=== PATIENT | male | born 1970 | race Caucasian/White ===

== ENCOUNTER 2023-05-10 14:39 | Inpatient (IN) ==
[2023-05-10] MEDS ORDERED: IOPAMIDOL 100 ML BOTTLE IV ONE (14:40)
[2023-05-10] MEDS ORDERED: 0.9 % SODIUM CHLORIDE 1,000 ML IV ONE (15:09)
[2023-05-10 15:26] LABS: POC Calcium, Ionized 1.12 (1.16-1.32); POC Creatinine 2.1 (0.6-1.2); POC Potassium 3.8 (3.3-5.1)
[2023-05-10 16:04] LABS: Basophils # (Auto) 0.03 K/mcL (0.00-0.30); Basophils % (Auto) 0.3 % (0.0-2.0); Eosinophils # (Auto) 0.01 K/mcL (0.00-0.70); Eosinophils % (Auto) 0.1 % (0.0-7.0); Hematocrit 31.4 % (40.1-51.0); Hemoglobin 9.7 g/dL (13.7-17.5); Lymphocytes # (Auto) 0.66 K/mcL (1.50-4.80); Lymphocytes % (Auto) 5.9 % (15.5-49.0); Mean Cell Volume 86.3 fL (80.0-100.0); Mean Corpuscular HGB Conc 30.9 g/dL (31.0-36.0); Mean Platelet Volume 9.2 fL (8.8-12.5); Monocytes # (Auto) 0.99 K/mcL (0.10-0.90); Monocytes % (Auto) 8.9 % (1.0-12.0); Neutrophils % (Auto) 81.4 % (38.0-78.0); Platelet Count 569 K/mcL (140-440); RBC 3.64 M/mcL (4.63-6.08); Red Cell Distribution Width 13.1 % (11.5-14.5); WBC 11.2 K/mcL (4.5-11.0)
[2023-05-10 16:08] LABS: INR 1.2 (0.9-1.1); Prothrombin Time 15.6 sec (11.9-14.5)
[2023-05-10 16:17] LABS: ALT/SGPT 11 U/L (<40); AST/SGOT 19 U/L (<40); Albumin 2.8 gm/dL (3.2-5.2); Alkaline Phosphatase 291 U/L (39-117); Bilirubin,Direct 0.3 mg/dL (<0.3); Bilirubin,Total 0.4 mg/dL (0.1-1.0); Globulin 4.3 gm/dL (2.2-3.7)
[2023-05-10] MEDS ORDERED: ACETAMINOPHEN 1,000 MG/100 ML BAG IV ONE (17:42)
[2023-05-10] MEDS ORDERED: ONDANSETRON 4 MG/2 ML VIAL IV ONE (17:42)
[2023-05-10] MEDS ORDERED: ONDANSETRON 4 MG/2 ML VIAL ONE ×2 (17:43→20:15)
[2023-05-10] MEDS ORDERED: VANCOMYCIN 2,000 MG in 0.9 % SODIUM CHLORIDE 500 ML IV ONE (17:44)
[2023-05-10] MEDS ORDERED: PIPERACILLIN SODIUM/TAZOBACTAM 4.5 GM in DEXTROSE 5% IN WATER 50 ML IV ONE (17:44)
[2023-05-10 18:35] LABS: Basophils # (Auto) 0.05 K/mcL (0.00-0.30); Basophils % (Auto) 0.4 % (0.0-2.0); Eosinophils # (Auto) 0.01 K/mcL (0.00-0.70); Eosinophils % (Auto) 0.1 % (0.0-7.0); Hematocrit 30.8 % (40.1-51.0); Hemoglobin 9.8 g/dL (13.7-17.5); Lymphocytes # (Auto) 0.92 K/mcL (1.50-4.80); Lymphocytes % (Auto) 6.6 % (15.5-49.0); Mean Cell Volume 85.6 fL (80.0-100.0); Mean Corpuscular HGB Conc 31.8 g/dL (31.0-36.0); Mean Platelet Volume 9.5 fL (8.8-12.5); Monocytes # (Auto) 1.35 K/mcL (0.10-0.90); Monocytes % (Auto) 9.7 % (1.0-12.0); Neutrophils % (Auto) 80.6 % (38.0-78.0); Platelet Count 676 K/mcL (140-440); Red Cell Distribution Width 13.3 % (11.5-14.5); WBC 13.9 K/mcL (4.5-11.0)
[2023-05-10 18:43] LABS: Appearance,Urine CLOUDY (Clear); Bilirubin,Urine Negative (Negative); Color,Urine AMBER; Culture Indicated,Urine Yes; Glucose,Urine (UA) >=500 mg/dL (Negative); Ketones,Urine 20 mg/dL (Negative); Leukocyte Esterase,Urine 250 /uL (Negative); Nitrate,Urine Negative (Negative); Protein,Urine 100 mg/dL (Negative); Specific Gravity,Urine 1.018 (1.000-1.035); Urine Budding Yeast MANY /hpf; Urine RBC > 182 /hpf (0-1); Urine Squamous Epithelial Cell 0 /hpf (0-4); Urine WBC > 182 /hpf (0-4); Urobilinogen,Urine Negative
[2023-05-10] MEDS ORDERED: ROCURONIUM 10 MG/ML ML IV ONE (20:15)
[2023-05-10] MEDS ORDERED: LIDOCAINE 2% PF 5 ML VIAL ONE (20:15)
[2023-05-10] MEDS ORDERED: PROPOFOL 200 MG/20 ML VIAL IV ONE ×2 (20:15→20:57)
[2023-05-10] MEDS ORDERED: DEXAMETHASONE 10 MG/ML VIAL ONE (20:15)
[2023-05-10] MEDS ORDERED: fentaNYL 100 MCG/2 ML VIAL IV ONE (20:18)
[2023-05-10] MEDS ORDERED: MIDAZOLAM 2 MG/2 ML VIAL ONE (20:18)
[2023-05-10] MEDS ORDERED: KETAMINE 50 MG/ML Syringe IV ONE (20:57)
[2023-05-10] MEDS ORDERED: [UNRECOGNIZED DRUG - MIXTURE] SQ ONE (21:00)
[2023-05-10] MEDS ORDERED: PHENYLephrine 1 MG/10 ML SYRINGE (ANEST) ONE (21:18)
[2023-05-10] MEDS ORDERED: GLYCOPYRROLATE 0.2 MG/ML VIAL IV ONE (21:18)
[2023-05-10] MEDS ORDERED: MAGNESIUM SULFATE 2 GM/50 ML BAG IV PRN (22:12)
[2023-05-10] MEDS ORDERED: ONDANSETRON 4 MG/2 ML VIAL IV PRN (22:12)
[2023-05-10] MEDS ORDERED: IPRATROPIUM/ALBUTEROL 3 ML AMPUL.NEB NEB PRN (22:12)
[2023-05-10] MEDS ORDERED: POLYETHYLENE GLYCOL 3350 17 GM PACKET PO PRN (22:12)
[2023-05-10] MEDS ORDERED: SENNOSIDES 1 TABLET PO PRN (22:12)
[2023-05-10] MEDS ORDERED: DEXTROSE 31 GM ORAL.SUSP PO PRN (22:12)
[2023-05-10] MEDS ORDERED: VANCOMYCIN PER PHARMACY IV SCH (22:12)
[2023-05-10] MEDS ORDERED: DEXTROSE 50% 50 ML VIAL IV PRN (22:12)
[2023-05-10] MEDS ORDERED: POTASSIUM CHLORIDE 40 MEQ in DEXTROSE 5% IN WATER 500 ML IV PRN (22:12)
[2023-05-10] MEDS ORDERED: POTASSIUM CHLORIDE 20 MEQ TABLET PO PRN ×2 (22:12)
[2023-05-10] MEDS: DOCUSATE SODIUM 100 MG CAPSULE PO SCH (22:44)
[2023-05-10] MEDS ORDERED: INSULIN LISPRO 1 UNIT/0.01 ML UNIT SQ ONE (22:49)
[2023-05-10] MEDS: INSULIN LISPRO 1 UNIT/0.01 ML UNIT SQ SCH (22:51)
[2023-05-10] MEDS: PIPERACILLIN SODIUM/TAZOBACTAM 3.375 GM in DEXTROSE 5% IN WATER 100 ML IV SCH (22:53)
[2023-05-11] MEDS: PIPERACILLIN SODIUM/TAZOBACTAM 3.375 GM in DEXTROSE 5% IN WATER 100 ML IV SCH ×2 (02:14→08:12)
[2023-05-11] MEDS ORDERED: ACETAMINOPHEN 325 MG TABLET PO ONE (02:22)
[2023-05-11] MEDS: ACETAMINOPHEN 325 MG TABLET PO PRN ×3 (02:23→19:11)
[2023-05-11] MEDS ORDERED: morphine 2 MG/ML VIAL ONE (04:26)
[2023-05-11] MEDS: morphine 2 MG/ML VIAL IV PRN ×6 (04:28→21:06)
[2023-05-11 06:43] LABS: Basophils # (Auto) 0.02 K/mcL (0.00-0.30); Basophils % (Auto) 0.2 % (0.0-2.0); Eosinophils # (Auto) 0 K/mcL (0.00-0.70); Eosinophils % (Auto) 0 % (0.0-7.0); Hematocrit 26.7 % (40.1-51.0); Hemoglobin 8.4 g/dL (13.7-17.5); Lymphocytes # (Auto) 0.56 K/mcL (1.50-4.80); Lymphocytes % (Auto) 5.3 % (15.5-49.0); Mean Cell Volume 84.5 fL (80.0-100.0); Mean Corpuscular HGB Conc 31.5 g/dL (31.0-36.0); Monocytes # (Auto) 0.43 K/mcL (0.10-0.90); Neutrophils % (Auto) 87.3 % (38.0-78.0); Platelet Count 515 K/mcL (140-440); RBC 3.16 M/mcL (4.63-6.08); Red Cell Distribution Width 13.3 % (11.5-14.5); WBC 10.7 K/mcL (4.5-11.0)
[2023-05-11 07:08] LABS: ALT/SGPT 9 U/L (<40); AST/SGOT 13 U/L (<40); Albumin 2.5 gm/dL (3.2-5.2); Albumin/Globulin Ratio 0.7 (1.0-2.3); Alkaline Phosphatase 273 U/L (39-117); Bilirubin,Direct < 0.2 mg/dL (0-0.3); Bilirubin,Total 0.2 mg/dL (0.1-1.0); Blood Urea Nitrogen 28 mg/dL (6-20); Calcium 8.8 mg/dL (8.6-10.4); Carbon Dioxide 12 mmol/L (22-30); Chloride 97 mmol/L (96-108); Globulin 3.5 gm/dL (2.2-3.7); Glomerular Filtration Rate 42; Glucose 267 mg/dL (70-105); Lactate Dehydrogenase 126 U/L (135-225); Phosphorous 5.4 mg/dL (2.5-4.5); Triglycerides 342 mg/dL (<150)
[2023-05-11] MEDS: INSULIN LISPRO 1 UNIT/0.01 ML UNIT SQ SCH ×4 (08:10→21:59)
[2023-05-11] MEDS ORDERED: 0.9 % SODIUM CHLORIDE 1,000 ML IV SCH (09:00)
[2023-05-11] MEDS: PIPERACILLIN SODIUM/TAZOBACTAM 3.375 GM in DEXTROSE 5% IN WATER 50 ML IV SCH ×3 (09:14→18:18)
[2023-05-11] MEDS: Vibegron 75 mg tablet PO SCH (11:04)
[2023-05-11] MEDS: HEPARIN 5,000 UNIT/ML VIAL SQ SCH ×2 (11:10→22:02)
[2023-05-11] MEDS: DOCUSATE SODIUM 100 MG CAPSULE PO SCH ×2 (11:10→22:00)
[2023-05-11] MEDS: SODIUM BICARBONATE 650 MG TABLET PO SCH ×3 (11:11→22:00)
[2023-05-11] MEDS: GABAPENTIN 300 MG CAPSULE PO SCH ×2 (11:11→22:00)
[2023-05-11] MEDS: LEVOTHYROXINE 100 MCG TABLET PO SCH (11:11)
[2023-05-11] MEDS: DULoxetine 30 MG CAPSULE PO SCH (11:11)
[2023-05-11] MEDS: TAMSULOSIN 0.4 MG CAPSULE PO SCH (11:12)
[2023-05-11] MEDS ORDERED: LABETALOL HCL 20 MG/4 ML VIAL IV PRN (20:17)
[2023-05-11] MEDS: INSULIN GLARGINE, HUMAN 1 UNIT/0.01 ML SQ SCH (21:59)
[2023-05-11] MEDS: ATORVASTATIN 10 MG TABLET PO SCH (22:00)
[2023-05-12] MEDS: PIPERACILLIN SODIUM/TAZOBACTAM 3.375 GM in DEXTROSE 5% IN WATER 50 ML IV SCH ×5 (05:16→23:19)
[2023-05-12 06:23] LABS: Basophils # (Auto) 0.02 K/mcL (0.00-0.30); Basophils % (Auto) 0.4 % (0.0-2.0); Eosinophils # (Auto) 0.02 K/mcL (0.00-0.70); Eosinophils % (Auto) 0.4 % (0.0-7.0); Hematocrit 28.3 % (40.1-51.0); Hemoglobin 8.9 g/dL (13.7-17.5); Lymphocytes # (Auto) 0.48 K/mcL (1.50-4.80); Lymphocytes % (Auto) 9.2 % (15.5-49.0); Mean Cell Volume 84.2 fL (80.0-100.0); Mean Corpuscular HGB Conc 31.4 g/dL (31.0-36.0); Mean Platelet Volume 9.3 fL (8.8-12.5); Monocytes # (Auto) 0.51 K/mcL (0.10-0.90); Monocytes % (Auto) 9.8 % (1.0-12.0); Neutrophils % (Auto) 74.8 % (38.0-78.0); Platelet Count 453 K/mcL (140-440); RBC 3.36 M/mcL (4.63-6.08); Red Cell Distribution Width 13.3 % (11.5-14.5); WBC 5.2 K/mcL (4.5-11.0)
[2023-05-12 06:56] LABS: ALT/SGPT 17 U/L (<40); AST/SGOT 22 U/L (<40); Albumin 2.5 gm/dL (3.2-5.2); Albumin/Globulin Ratio 0.8 (1.0-2.3); Alkaline Phosphatase 341 U/L (39-117); Bilirubin,Direct < 0.2 mg/dL (0-0.3); Bilirubin,Total 0.3 mg/dL (0.1-1.0); Blood Urea Nitrogen 29 mg/dL (6-20); Calcium 8.5 mg/dL (8.6-10.4); Carbon Dioxide 23 mmol/L (22-30); Chloride 101 mmol/L (96-108); Globulin 3.3 gm/dL (2.2-3.7); Glomerular Filtration Rate 48; Glucose 246 mg/dL (70-105); Lactate Dehydrogenase 111 U/L (135-225); Phosphorous 3.1 mg/dL (2.5-4.5); Triglycerides 458 mg/dL (<150); Uric Acid 5.8 mg/dL (2.5-8.0)
[2023-05-12] MEDS: morphine 2 MG/ML VIAL IV PRN ×5 (07:05→23:19)
[2023-05-12] MEDS: ACETAMINOPHEN 325 MG TABLET PO PRN ×3 (07:06→23:19)
[2023-05-12] MEDS: INSULIN LISPRO 1 UNIT/0.01 ML UNIT SQ SCH ×4 (07:35→20:47)
[2023-05-12] MEDS ORDERED: VIBEGRON 75 MG PO SCH (09:00)
[2023-05-12] MEDS: LISINOPRIL 10 MG TABLET PO SCH (09:10)
[2023-05-12] MEDS: LEVOTHYROXINE 100 MCG TABLET PO SCH (09:10)
[2023-05-12] MEDS: DULoxetine 30 MG CAPSULE PO SCH (09:10)
[2023-05-12] MEDS: GABAPENTIN 300 MG CAPSULE PO SCH ×2 (09:10→20:48)
[2023-05-12] MEDS: Vibegron 75 mg tablet PO SCH (09:11)
[2023-05-12] MEDS: DOCUSATE SODIUM 100 MG CAPSULE PO SCH ×2 (09:11→20:48)
[2023-05-12] MEDS: HEPARIN 5,000 UNIT/ML VIAL SQ SCH ×2 (09:11→20:48)
[2023-05-12] MEDS: TAMSULOSIN 0.4 MG CAPSULE PO SCH (09:11)
[2023-05-12] MEDS: traMADol 50 MG TABLET PO PRN ×2 (15:18→20:50)
[2023-05-12] MEDS: INSULIN GLARGINE, HUMAN 1 UNIT/0.01 ML SQ SCH (20:47)
[2023-05-12] MEDS: ATORVASTATIN 10 MG TABLET PO SCH (20:48)
[2023-05-13] MEDS: traMADol 50 MG TABLET PO PRN ×4 (03:13→18:53)
[2023-05-13] MEDS: PIPERACILLIN SODIUM/TAZOBACTAM 3.375 GM in DEXTROSE 5% IN WATER 50 ML IV SCH ×3 (05:58→17:42)
[2023-05-13 07:21] LABS: ALT/SGPT 22 U/L (<40); AST/SGOT 36 U/L (<40); Albumin 2.4 gm/dL (3.2-5.2); Albumin/Globulin Ratio 0.8 (1.0-2.3); Alkaline Phosphatase 430 U/L (39-117); Bilirubin,Direct 0.3 mg/dL (<0.3); Bilirubin,Total 0.4 mg/dL (0.1-1.0); Blood Urea Nitrogen 23 mg/dL (6-20); Calcium 8.2 mg/dL (8.6-10.4); Carbon Dioxide 24 mmol/L (22-30); Chloride 97 mmol/L (96-108); Globulin 2.9 gm/dL (2.2-3.7); Glomerular Filtration Rate 52; Glucose 257 mg/dL (70-105); Lactate Dehydrogenase 123 U/L (135-225); Phosphorous 3.4 mg/dL (2.5-4.5); Triglycerides 654 mg/dL (<150); Uric Acid 4.7 mg/dL (2.5-8.0)
[2023-05-13] MEDS: INSULIN LISPRO 1 UNIT/0.01 ML UNIT SQ SCH ×4 (07:23→21:05)
[2023-05-13] MEDS: ACETAMINOPHEN 325 MG TABLET PO PRN (07:24)
[2023-05-13] MEDS: INSULIN GLARGINE, HUMAN 1 UNIT/0.01 ML SQ SCH ×2 (09:32→21:05)
[2023-05-13] MEDS: TAMSULOSIN 0.4 MG CAPSULE PO SCH (09:32)
[2023-05-13] MEDS: Vibegron 75 mg tablet PO SCH (09:33)
[2023-05-13] MEDS: LEVOTHYROXINE 100 MCG TABLET PO SCH (09:33)
[2023-05-13] MEDS: GABAPENTIN 300 MG CAPSULE PO SCH ×2 (09:33→21:05)
[2023-05-13] MEDS: DOCUSATE SODIUM 100 MG CAPSULE PO SCH ×2 (09:33→20:52)
[2023-05-13] MEDS: DULoxetine 30 MG CAPSULE PO SCH (09:33)
[2023-05-13] MEDS: LISINOPRIL 10 MG TABLET PO SCH (09:33)
[2023-05-13] MEDS: HEPARIN 5,000 UNIT/ML VIAL SQ SCH ×2 (09:38→21:04)
[2023-05-13 10:35] LABS: Hemoglobin A1C 8.9 % Hgb (4.0-6.0)
[2023-05-13] MEDS ORDERED: FAMOTIDINE/PF 20 MG/2 ML VIAL IV SCH (14:23)
[2023-05-13] MEDS ORDERED: diphenhydrAMINE 25 MG CAPSULE PO SCH (14:24)
[2023-05-13] MEDS: ATORVASTATIN 10 MG TABLET PO SCH (21:06)
[2023-05-13] MEDS ORDERED: methylPREDNISolone SOD SUCC 40 MG/ML VIAL IV ONE ×2 (22:34→22:38)
[2023-05-13] MEDS ORDERED: KETOROLAC 30 MG/ML VIAL IV ONE (22:57)
[2023-05-13] MEDS ORDERED: ACETAMINOPHEN 325 MG TABLET PO PRN (22:57)
[2023-05-14] MEDS ORDERED: KETOROLAC 15 MG/ML VIAL ONE (00:02)
[2023-05-14] MEDS: PIPERACILLIN SODIUM/TAZOBACTAM 3.375 GM in DEXTROSE 5% IN WATER 50 ML IV SCH ×2 (00:04→05:31)
[2023-05-14] MEDS: TRIAMCINOLONE CREAM 0.1% 15G 1 DOSE TUBE TOPICAL SCH ×2 (00:11→09:04)
[2023-05-14 06:41] LABS: ALT/SGPT 35 U/L (<40); AST/SGOT 32 U/L (<40); Albumin 2.5 gm/dL (3.2-5.2); Albumin/Globulin Ratio 0.7 (1.0-2.3); Alkaline Phosphatase 498 U/L (39-117); Bilirubin,Direct < 0.2 mg/dL (0-0.3); Bilirubin,Total 0.2 mg/dL (0.1-1.0); Blood Urea Nitrogen 23 mg/dL (6-20); Calcium 8.8 mg/dL (8.6-10.4); Carbon Dioxide 22 mmol/L (22-30); Chloride 101 mmol/L (96-108); Globulin 3.6 gm/dL (2.2-3.7); Glomerular Filtration Rate 62; Glucose 257 mg/dL (70-105); Lactate Dehydrogenase 159 U/L (135-225); Phosphorous 3.6 mg/dL (2.5-4.5); Triglycerides 614 mg/dL (<150)
[2023-05-14] MEDS ORDERED: predniSONE 20 MG TABLET PO ONE (08:35)
[2023-05-14] MEDS: INSULIN LISPRO 1 UNIT/0.01 ML UNIT SQ SCH (08:57)
[2023-05-14] MEDS: TAMSULOSIN 0.4 MG CAPSULE PO SCH (08:58)
[2023-05-14] MEDS: INSULIN GLARGINE, HUMAN 1 UNIT/0.01 ML SQ SCH (08:58)
[2023-05-14] MEDS: GABAPENTIN 300 MG CAPSULE PO SCH (08:58)
[2023-05-14] MEDS: LEVOTHYROXINE 100 MCG TABLET PO SCH (08:58)
[2023-05-14] MEDS: DULoxetine 30 MG CAPSULE PO SCH (08:58)
[2023-05-14] MEDS: Vibegron 75 mg tablet PO SCH (08:59)
[2023-05-14] MEDS: LISINOPRIL 10 MG TABLET PO SCH (08:59)
[2023-05-14] MEDS: DOCUSATE SODIUM 100 MG CAPSULE PO SCH (09:03)
[2023-05-14] MEDS: HEPARIN 5,000 UNIT/ML VIAL SQ SCH (12:50)
== END 2023-05-14 10:55 | disposition home or self-care (01) | DRG 872 ==
LOC: ED 14:39 → SUR 20:23 → ICU 22:08
PROVIDERS: ADMIT Internal Medicine; ATTEND Internal Medicine